=== PATIENT | male | born 1960 | race Caucasian/White ===

== ENCOUNTER 2023-07-02 08:40 | Outpatient (CLI) | payer MEDICARE, BC, SELFPAY ==
--- NOTE | 2023-07-02 09:01 | XR_ITS ---
WS: [id number] Exam: XR ankle RT min 3V* [id number] Date/Time of Exam: 07/02/2023 9:36 AM Reason For Exam: PAIN OF R ANKLE JOINT No fracture or dislocation. The ankle mortise is well-maintained. Small soft tissue ossifications see n along the anterior aspect of the ankle mortise. No soft tissue edema. IMPRESSION: 1. No fracture or dislocation.
== END 2023-07-02 08:41 | disposition home or self-care (01) ==
PROVIDERS: PCP Family Medicine; Visit Provider Family Medicine
DX: M25.571 Pain in right ankle and joints of right foot (principal)
CPT/HCPCS: 73610